=== PATIENT | male | born 2000 | race Caucasian/White ===

== ENCOUNTER 2021-10-02 15:25 | Emergency (ER) | payer OTHER ==
[~2021-10-02] VITALS: Ht 165.1 cm; Wt 100.2 kg
[2021-10-02 15:40] VITALS: BP 125/64
--- NOTE | 2021-10-02 15:50 | NUR ---
PT TO WAIT IN LOBBY, GIVEN URINE CUP
--- NOTE | 2021-10-02 16:44 | NUR ---
AMBULATED TO ER BED 5 WITH FAMILY
--- NOTE | 2021-10-02 17:07 | NUR ---
PT ALERT AND ORIENTED X4 WITH HX OF AUTISM. ABILITY TO COMMUNICATE HEALTH HX IS A LITTLE DIFFICULT. FATHER IS AT THE BEDSIDE AND ABLE TO GIVE FULL HX. CURRENT C/O GENERALIZED ABD PAIN THAT RADIATES TO THE CHEST, CHARACTERIZED 5/10 PRESSURE. DENIES ANY N/V/D. POSSIBLE BM YESTERDAY BUT UNSURE. EKG INITIATED, PLACED ON MONITOR, VS WNL WITH EVEN AND UNLABORED BREATHING. WILL CONITINUE TO MONITOR.
[2021-10-02 18:30] LABS: BASOPHILS # (AUTO) 0.1 K/uL (0.00-0.22); BASOPHILS % (AUTO) 0.7 % (0.0-2.0); EOSINOPHILS # (AUTO) 0.1 K/uL (0-0.4); EOSINOPHILS % (AUTO) 0.7 % (0.0-4.0); HEMATOCRIT 45.7 % (36-52); HEMOGLOBIN 15.5 g/dL (12.0-18.0); LYMPHOCYTES # (AUTO) 2.6 K/uL (2.0-11.5); LYMPHOCYTES % (AUTO) 29.9 % (20.5-51.1); MEAN CORPUSCULAR HEMOGLOBIN 29 pg (27-31); MEAN CORPUSCULAR HGB CONC 34 g/dL (33-37); MEAN CORPUSCULAR VOLUME 86.2 fL (80-94); MONOCYTES % (AUTO) 10.9 % (1.7-9.3); NEUTROPHILS % (AUTO) 57.8 % (42.2-75.2); PLATELET COUNT (AUTO) 338 K/uL (140-450); RED BLOOD CELL COUNT(AUTO) 5.31 MIL/uL (4.20-6.10); WHITE BLOOD COUNT (AUTO) 8.7 K/uL (4.8-10.8)
[2021-10-02 18:45] LABS: ALBUMIN 4.2 g/dL (3.4-5.0); ANION GAP 12.8 (8-16); CARBON DIOXIDE 28.8 mmol/L (21-32); POTASSIUM 3.6 mmol/L (3.5-5.1); TOTAL BILIRUBIN 0.3 mg/dL (0.0-1.0)
--- NOTE | 2021-10-02 18:47 | NUR ---
PT TO WAIT IN LOBBY FOR RESULTS.
[2021-10-02 21:23] VITALS: BP 117/75
--- NOTE | 2021-10-02 21:23 | NUR ---
PATIENT CLEARED FOR DISCHARGE AT THIS TIME, NO FURTEHR QUESTIONS OR CONCERN FOLLWOING DISCHARGE TEACHING. ADVISED TO FOLLOW UP WITH PCP AND RETURN IF CONDITION WORSENS.N
== END 2021-10-02 21:23 | disposition home or self-care (01) ==
LOC: MED 15:25
DX: R07.9 Chest pain, unspecified (principal); R10.9 Unspecified abdominal pain; F84.0 Autistic disorder
CPT/HCPCS: 36415; 71045; 80053; 81002; 83690; 84484; 85025; 93005; 99285; Q0092